=== PATIENT | male | born 1980 | race African-American/Black ===

== ENCOUNTER 2019-01-02 19:09 | Emergency (ER) | payer MEDICAID ==
[~2019-01-02] VITALS: Ht 182.9 cm; Wt 98.4 kg
[2019-01-02 19:15] VITALS: BP 175/130; Ht 182.9 cm; Wt 98.4 kg
== END 2019-01-02 22:01 | disposition left against medical advice (07) ==
LOC: ED 19:09
DX: Z53.21 Procedure and treatment not carried out due to patient leaving prior to being seen by health care provider (principal)